=== PATIENT | female | born 1970 | race Caucasian/White ===

== ENCOUNTER 2019-06-30 19:03 | Observation (INO) | payer BC ==
[~2019-06-30 19:03] MED LIST: Iopamidol-370 76% 500 ML 1 ML ONE
[2019-06-30 20:14] LABS: #Basophils 0.1 thou/uL (0.0-0.2); #Eosinphils 0.1 thou/uL (0.0-0.7); #Lymphocytes 1.8 thou/uL (1.20-3.40); #Monocytes 0.5 thou/uL (0.11-0.59); #Neutrophils 2.4 thou/uL (1.40-6.50); %Basophils 1.5 % (0.0-1.0); %Eosinophils 1.1 % (0.0-10.0); %Lymphocytes 36.6 % (21.0-51.0); %Monocytes 10.9 % (0.0-10.0); Hemoglobin 13.3 g/dL (12.0-16.0); Mean Corpuscular HGB CONC 34.4 g/dL (32.0-36.0); Mean Corpuscular Hemoglobin 30.4 pg (27.0-31.0); Mean Corpuscular Volume 88.5 fL (78.0-98.0); Mean Platelet Volume 6.9 fL (7.4-10.4); Platelet Count 315 thou/uL (130-400); RBC Distribution Width 12.3 % (11.5-14.5); Red Blood Cell (RBC) Count 4.37 mill/uL (4.20-5.40); White Blood Cell (WBC) Count 4.9 thou/uL (4.8-10.8)
[2019-06-30 20:35] LABS: ALT (SGPT) 10 U/L (8-55); AST (SGOT) 16 U/L (5-34); Albumin 4.2 g/dL (3.5-5.0); Alkaline Phosphatase 51 U/L (40-110); Anion Gap 11 mmol/L (10-20); BUN (Urea Nitrogen) 12 mg/dL (7.0-18.7); Bilirubin, Total 0.3 mg/dL (0.2-1.2); Calc. Creatinine Clearance 0 mL/min (70-130); Calcium 9.5 mg/dL (7.8-10.44); Carbon Dioxide 28 mmol/L (22-29); Chloride 103 mmol/L (98-107); Estimated GFR-MDRD 83; Globulin 2.8 g/dL (2.4-3.5); Glucose 94 mg/dL (70-105); Sodium 138 mmol/L (136-145)
[2019-06-30 20:39] LABS: Troponin I Less than 0.010 ng/mL (< 0.028)
--- NOTE | 2019-06-30 20:53 | CT ---
CT BRAIN NONCONTRAST: DATE: 06/30/2019 HISTORY: 49-year-old female with altered mental status and right upper extremity paresthesia and hypesthesia. FINDINGS: There is no evidence of acute intra-axial or extra-axial hemorrhage. There is no midline shift or any other mass effect. There is no extra-axial fluid collection. The ventricles are normal in size and configuration. The tympanomastoid cavities, and the upper portions of the paranasal sinuses included in these images, are grossly clear. Calvarium is intact. IMPRESSION: Normal.
--- NOTE | 2019-06-30 21:08 | CT ---
CT ANGIOGRAM THORAX WITH CONTRAST: (CTA pulmonary angiogram) DATE: 06/30/2019 HISTORY: 49-year-old female with chest pain. Right upper extremity paresthesia and hypesthesia TECHNIQUE: IV injection of iodinated contrast. Scan acquisition timing attempted to coincide with iodinated contrast bolus reaching maximal density in pulmonary arteries. 3-D MIP reconstructions. FINDINGS: No pulmonary thromboembolism is identified. No thoracic aortic dissection or rupture. Ectasia of asce nding thoracic aorta caliber up to 3.5 cm. Calcified granuloma in anterior segment of left upper lobe. Otherwise, lungs are clear. No pleural effusion, pneumothorax, mediastinal lymphadenopathy, or hilar lymphadenopathy. No cardiomegaly or pericardial effusion. Large number of focal small hypodensities throughout the liver. The largest one in right lobe of liver is approximately 2.2 cm, a nd is a cyst. The others are too small to characterize. It is assumed that there are also cysts. Right subclavian artery is normal. Brachiocephalic artery is partially obscured by streak artifact fr om adjacent dense contrast bolus in the adjacent left subclavian vein. Trachea and major bronchi are patent and clear. No destructive osseous lesion or rib fracture. IMPRESSION: 1) no pulmonary thromboembolism. 2) large number of small focal low-density hepatic lesions. At least some are cysts. Others are indet erminate. 3) ectasia of ascending thoracic aorta.
[2019-06-30 22:02] LABS: CKMB 1.5 ng/mL (0-6.6)
[2019-06-30] MEDS ORDERED: Aspirin Chewable 81 MG TAB ONE (22:51)
--- NOTE | 2019-07-01 00:05 | PDOC.FPRHP ---
- History of Present Illness Chief Complaint: Tingling & Numbness in face, arm, leg History of Present Illness: 49 yo female presents with complaint of right arm tingling, and feeling of right arm coldness. Additionally she says her right foot feels cold and numb. She says she has been having these sensations on/off since Wednesday 06/27, then today the sensations became constant which prompted her to come to ED. She also started noticing ringing in her right ear this morning. She additionally reports that when she was walking on Sunday she had a brief episode of about 2 minutes during which she felt SOB and had blurry vision. These symptoms resolved after she sat down and rested. Patient states she has been worked up for autoimmune disorder in the past but says her PCP did not find anything abnormal. Denies having had any similar episodes or odd sensations in the past prior to the events described previously. Patient additionally reports that she normally has a BP in 110s/70s. On Sunday she noticed that her heart felt like it was racing, checked her pulse and was 160. She says when later checked her HR it was 48. HR has been up/down past 48 hrs. Additionally her BP has been elevated on/off since then. Patient had surgery for venous insufficiency with Dr Aj Jun 17 and Jun 26. Saw him today in clinic, reports she had a normal EKG and venous US. Dr. Aj was concerned for a PE and ordered CTA however her insurance required a prior auth and she had to wait until it was approved. ED Course: Given [address] head normal. CTA chest showed no signs of PE. - Allergies/Adverse Reactions Allergies Allergy/AdvReac Type Severity Reaction Status Date / Time Penicillins Allergy Severe Anaphylaxis Verified 07/01/19 00:08 - Home Medications Comments: Thyroid [place] 60 mg daily - History PMHx: thyroid nodule removed (non cancerous), Hypothyroid PSHx: tonsillectomy, mandible advancement, bilateral tubal ligation, vein ablation x 2 FHx: mostly unknown, both parents with substance abuse, denies hx of autoimmune disorders, mom with DM Social: denies tobacco or EtOH use - Review of Systems General: denies: fever/chills, weight/appetite/sleep changes, fatigue Eyes: reports: vision changes ENT: denies: nasal congestion Respiratory: reports: shortness of breath. denies: cough, congestion Cardiovascular: denies: chest pain, palpitation, edema Gastrointestinal: denies: nausea, vomiting, diarrhea, abdominal pain Genitourinary: denies: dysuria Skin: denies: rashes, lesions Musculoskeletal: denies: pain, tenderness, stiffness, swelling Neurological: reports: numbness. denies: syncope, weakness Psychological: denies: anxiety, depression - Vital signs BP: 143/82 HR: 90 RR: 17 Tmax: 98.1F Pox: 97% on RA Wt: 63 kg - Physical Exam Constitutional: NAD, awake, alert and oriented, well developed HEENT: normocephalic and atraumatic, PERRLA, EOMI, conjunctiva clear, no scleral icterus, grossly normal vision, grossly normal hearing, MMM, good dention Neck: supple, FROM, trachea midline, no JVD, no thyromegaly Heart: RRR, normal S1/S2, no murmurs/rubs/gallops, pulses present, no edema Lungs: CTAB, no respiratory distress, good air movement, no rales/rhonchi, no wheezing Abdomen: soft, non-tender, bowel sounds present, no masses/distention Musculoskeletal: normal structure, normal tone, ROM grossly normal Neurological: CN II-XII intact -Neurological: Reports sensory deficits ("feels different when compared to other side") when touching top of right foot, portions of right arm consistent with C7 & T1 nerve distribution sites, CN V2 of right face. Skin: no rash/lesions, good turgor Heme/Lymphatic: no unusual bruising or bleeding Psychiatric: normal mood and affect, intact recent and remote memory FMR H&P: Results - Labs Result Diagrams: 06/30/19 20:06 06/30/19 20:06 Lab results: WBC 4.9 thou/uL (4.8-10.8) 06/30/19 20:06 Hgb 13.3 g/dL (12.0-16.0) 06/30/19 20:06 Hct 38.7 % (36.0-47.0) 06/30/19 20:06 MCV 88.5 fL (78.0-98.0) 06/30/19 20:06 Plt Count 315 thou/uL (130-400) 06/30/19 20:06 Neutrophils % 50.0 % (42.0-75.0) 06/30/19 20:06 Sodium 138 mmol/L (136-145) 06/30/19 20:06 Potassium 4.0 mmol/L (3.5-5.1) 06/30/19 20:06 Chloride 103 mmol/L (98-107) 06/30/19 20:06 Carbon Dioxide 28 mmol/L (22-29) 06/30/19 20:06 BUN 12 mg/dL (7.0-18.7) 06/30/19 20:06 Creatinine 0.75 mg/dL (0.6-1.1) 06/30/19 20:06 Glucose 94 mg/dL (70-105) 06/30/19 20:06 Calcium 9.5 mg/dL (7.8-10.44) 06/30/19 20:06 Total Bilirubin 0.3 mg/dL (0.2-1.2) 06/30/19 20:06 AST 16 U/L (5-34) 06/30/19 20:06 ALT 10 U/L (8-55) 06/30/19 20:06 Alkaline Phosphatase 51 U/L (40-110) 06/30/19 20:06 CK-MB (CK-2) 1.5 ng/mL (0-6.6) 06/30/19 21:43 Serum Total Protein 7.0 g/dL (6.0-8.3) 06/30/19 20:06 Albumin 4.2 g/dL (3.5-5.0) 06/30/19 20:06 - EKG Interpretation EKG: NSR - Radiology Interpretation CT scan - chest Status: report reviewed by me (CTA chest: large number of small focal hepatic lesions & cysts, ectasia of ascending thoracic aorta, no sign of PE) CT scan - head Status: report reviewed by me (normal) FMR H&P: A/P - Problem List (1) Paresthesia of right arm and leg Current Visit: Yes Status: Acute Code(s): R20.2 - PARESTHESIA OF SKIN (2) Facial paresthesia Current Visit: Yes Status: Acute Code(s): R20.9 - UNSPECIFIED DISTURBANCES OF SKIN SENSATION (3) Hypothyroid Current Visit: Yes Status: Acute Code(s): E03.9 - HYPOTHYROIDISM, UNSPECIFIED Qualifiers: Hypothyroidism type: unspecified Qualified Code(s): E03.9 - Hypothyroidism , unspecified - Plan Patient is a 49 yo female with complaint of multiple paresthesias is admitted for CVA rule-out: #Paresthesias of right arm & leg, right face -suspect autoimmune component also patient reports has been worked up for this in past -CT head neg -CTA chest shows no signs of PE, has numerous small hepatic lesions/cysts -MRI head in AM -check TSH, RPR -neuro checks q4h #S/P Vein Ablation in [place] -done by Dr. Aj on 06/17/19 and 06/26/19 -imaging neg for DVT, PE #Hypothyroidism -continue home med: Thyroid [place] 60 mg daily -check TSH Diet: Regular VTE: SCDs Code: FULL Dispo: Stable, admitted to observation on stroke unit. Monitor vitals overnight. Plan to check MRI in the AM. Anticipate LOS < 48 hrs. FMR H&P: Upper Level - Pertinent history 49 yo F here with complaint of R arm numbness for the past 2 days. She states that she noticed symptoms off and on since a venous insufficiency procedure 4 days ago and that they have persisted for 2 days. She has associated R foot tingling. She also states that she had about 10 minutes of blurred vision while going for a walk 2 days ago, this has not recurred. In the ER EKG was NSR, labs were WNL, CT brain was normal, CTA chest was negative for PE, but found ectasia of the aorta and hepatic low density lesions. PMHx Hypothyroid Surgical Hx Thyroidectomy Jaw surgery tubal ligation tonsillectomy Vein ablation Social Hx No etoh, tobacco, or recreational drugs FHx Unknown maternal side other than aunts and uncles with CAD No paternal hx - Pertinent findings See architect internship note for full ROS, PE, vitals, and labs ROS General Denies fever/chills CV Complains of periods of heart racing Resp Denies SOB GI Denies n/v/d/c Neuro Complains of R arm numbness, numbness in the top of the R foot, and previous blurred vision Skin denies rash PE General no acute distress HEENT NCAT CV RRR, no murmur Resp CTA b/l Abd No TPP or distension Skin no rash Neuro partial numbness medial R arm. No focal deficits. Normal strength. Normal CN II-XII - Plan Date/Time: 06/30/19 [id number] I, Reji Cardozo DO, have evaluated this patient and agree with findings/plan as outlined by architect internship resident. Pertinent changes/additions are listed here. 1.Paresthesia -Unclear etiology at this time. DDx includes MS, TIA, other neuropathy -Evaluate with MRI, Echo, TSH, RPR -Admit to stroke obs 2.Palpitation -Monitor on tele -Checking echo and TSH as above 3.Hepatic cysts -Incidental finding. May consider outpatient GI work up. 4.Hypothyroid -Home meds Diet Regular PPx SCD Code Full
[2019-07-01] MEDS ORDERED: Ondansetron ODT 4 MG TAB PO PRN (00:58)
[2019-07-01] MEDS ORDERED: Ondansetron PF 4 MG/2 ML Vial IVP PRN (00:58)
[2019-07-01] MEDS ORDERED: Acetaminophen 325 MG TAB PO PRN (00:58)
[2019-07-01] MEDS ORDERED: Calcium Carbonate 500 MG ChewTAB PO PRN (00:58)
[2019-07-01 01:56] VITALS: BMI 24.5
[2019-07-01 02:24] LABS: #Eosinphils 0.1 thou/uL (0.0-0.7); #Lymphocytes 1.7 thou/uL (1.20-3.40); #Monocytes 0.6 thou/uL (0.11-0.59); #Neutrophils 2.9 thou/uL (1.40-6.50); %Basophils 0.6 % (0.0-1.0); %Eosinophils 1.4 % (0.0-10.0); %Lymphocytes 32.7 % (21.0-51.0); %Monocytes 11.7 % (0.0-10.0); %Neutrophils 53.6 % (42.0-75.0); Hemoglobin 12.7 g/dL (12.0-16.0); Mean Corpuscular HGB CONC 34.1 g/dL (32.0-36.0); Mean Corpuscular Hemoglobin 30.3 pg (27.0-31.0); Mean Corpuscular Volume 88.7 fL (78.0-98.0); Mean Platelet Volume 6.9 fL (7.4-10.4); Platelet Count 289 thou/uL (130-400); RBC Distribution Width 12.3 % (11.5-14.5); White Blood Cell (WBC) Count 5.3 thou/uL (4.8-10.8)
[2019-07-01 02:47] LABS: Troponin I Less than 0.010 ng/mL (< 0.028)
[2019-07-01 02:55] LABS: ALT (SGPT) 10 U/L (8-55); AST (SGOT) 14 U/L (5-34); Alkaline Phosphatase 45 U/L (40-110); Anion Gap 13 mmol/L (10-20); BUN (Urea Nitrogen) 14 mg/dL (7.0-18.7); Bilirubin, Total 0.4 mg/dL (0.2-1.2); Calc. Creatinine Clearance 102 mL/min (70-130); Calcium 9.2 mg/dL (7.8-10.44); Carbon Dioxide 25 mmol/L (22-29); Chloride 105 mmol/L (98-107); Estimated GFR-MDRD 87; Globulin 2.7 g/dL (2.4-3.5); Glucose 87 mg/dL (70-105); Potassium 3.7 mmol/L (3.5-5.1); Protein, Total 6.7 g/dL (6.0-8.3); Sodium 139 mmol/L (136-145)
--- NOTE | 2019-07-01 06:04 | PDOC.FM ---
- Objective Vital Signs & Weight: Vital Signs (12 hours) Temp Pulse Resp BP Pulse Ox 07/01/19 04:00 97.6 F 77 16 111/54 L 98 07/01/19 00:40 97.7 F 65 16 113/63 98 Weight Weight 66.769 kg Result Diagrams: 07/01/19 02:11 07/01/19 02:11 Dx/Plan (1) Facial paresthesia Code(s): R20.9 - UNSPECIFIED DISTURBANCES OF SKIN SENSATION Status: Acute (2) Hypothyroid Code(s): E03.9 - HYPOTHYROIDISM, UNSPECIFIED Status: Chronic Qualifiers: Hypothyroidism type: unspecified Qualified Code(s): E03.9 - Hypothyroidism , unspecified (3) Paresthesia of right arm and leg Code(s): R20.2 - PARESTHESIA OF SKIN Status: Acute - Plan Plan: Patient is a 49 yo female with complaint of multiple paresthesias is admitted for CVA rule-out: 1. Paresthesias of right arm & leg, right face -suspect autoimmune component also patient reports has been worked up for this in past -CT head neg -CTA chest shows no signs of PE, has numerous small hepatic lesions/cysts -MRI head ordered -TSH normal, RPR NR -neuro checks q4h 2. S/P Vein Ablation in [facility] -done by Dr. Aj on 06/17/19 and 06/26/19 -imaging neg for DVT, PE 3. Hypothyroidism -continue home med: Thyroid [place] 60 mg daily -TSH within normal range 4. Hepatic cysts - incidentally fount on CT scan. - Will discuss outpt GI f/u Diet: Regular VTE: SCDs Code: FULL Dispo: Stable, admitted to observation on stroke unit. Monitor vitals overnight. Anticipate LOS < 48 hrs.
[2019-07-01 06:19] LABS: Syphilis Antibody Nonreactive (Nonreactive); Syphilis Antibody Index 0.07 S/CO (<1.00 Non-Reactive)
[2019-07-01] MEDS ORDERED: Thyroid 60 MG TAB PO SCH (09:00)
--- NOTE | 2019-07-01 09:11 | MRI ---
Exam: Brain MRI with and without contrast HISTORY: CVA. TIA. Confusion. Right-sided tingling. COMPARISON: None FINDINGS: Gradient echo sequence: No hemorrhage Calvarium: Appropriate T1 marrow signal intensity Midline brain parenchyma: Unremarkable Cerebrum:No parenchymal mass, mass effect or midline shift. Brain volume is age-appropriate. Cortical letser-white matter differentiation is preserved. No significant T2 or FLAIR white matter hyperintensities. Ventricles: No evidence of hydrocephalus. Sinuses and mastoid air cells: Adequate aeration Diffusion: Central arterial flow is maintained. Absent restricted diffusion. Postcontrast images: No pathologic enhancement of the brain parenchyma. IMPRESSION: Unremarkable pre and postcontrast brain MRI. Absent restricted diffusion. No acute infarct. No pathol ogic enhancement of the brain parenchyma. No significant T2 or FLAIR white matter hyperintensities.
--- NOTE | 2019-07-01 11:52 | HP ---
I have discussed the case with Dr. Karli Morfin and agree with her assessment and plan. HISTORY OF PRESENT ILLNESS: Ms. Santillan is a pleasant 49-year-old white female, who presented to our ER with chief complaints of tingling in her right arm and a feeling of right arm coldness that had been ongoing since 06/27. She had also an episode of blurry vision about 3 days ago. She was then brought in for a TIA/CVA rule out. PHYSICAL EXAMINATION: VITAL SIGNS: Her blood pressure is 143/82, heart rate is 90, her respirations are 17. She is afebrile and her room air pulse ox is 97%. GENERAL: She is awake, alert, very pleasant, in no acute distress, and oriented x3. EAR, NOSE AND THROAT: No outward signs of trauma. No neck stiffness. No erythema or exudate. NECK: Supple. CARDIAC: Heart rhythm is regular. No gallop or murmur noted. LUNGS: Clear without rales or wheezes. ABDOMEN: Flat and soft without guarding, rebound, or rigidity. EXTREMITIES: No edema. NEUROLOGIC: No focal deficits are noted. LABORATORY DATA: CBC, white count is 4900, hemoglobin 13.3, hematocrit 38.7 with an MCV of 88.5. Chemistry, sodium 139, potassium 3.7, chloride 105, bicarb 25, BUN is 14, creatinine is 0.72 with a GFR of 87. Her troponins are less than 0.01. Her TSH is 2.5496. ASSESSMENT: Possible transient ischemic attack versus cervical radiculopathy versus other peripheral neuropathy. PLAN: The patient has been admitted and we will perform an MRI and some further blood work. In fact, her MRI was performed later today and it was normal. Her physical exam remains normal. We have recommended that she have as an outpatient some EMG nerve conduction studies and follow up with a neurologist. She is pleasant and agreeable to this plan and will be discharged. Job ID: [id number]
[2019-07-01 12:23] VITALS: BP 117/69; TEMP 97.9
[2019-07-01] MEDS ORDERED: Magnevist 469MG/ML 20 ML VIAL ONE (13:58)
[2019-07-01] MEDS ORDERED: FLU VACC QS2019-20(6MOS UP)/PF 60 MCG/0.5 ML SYRINGE IM ONE (21:00)
--- NOTE | 2019-07-02 13:20 | DIS ---
DATE OF ADMISSION: 07/01/2019 DATE OF DISCHARGE: 07/01/2019 RESIDENT: Jasmyne Mckenzie DO. ADMITTING ATTENDING: Dereck Shaffer MD. DISCHARGE ATTENDING: Dereck Shaffer MD. CONSULTS: None. PROCEDURES: Brain MRI negative. DIAGNOSES: 1. Transient paresthesia. 2. Hypothyroidism. 3. Incidental hepatic cyst finding on CT scan. DISCHARGE MEDICATIONS: 1. [place] Thyroid 60 mg daily. 2. Methylphenidate. Continue home dose. HISTORY OF PRESENT ILLNESS/HOSPITAL COURSE: The patient is a 49-year-old female with a history of hypothyroidism, on [place] Thyroid, coming in for transient paraesthesias of the right upper extremity and right neck, these symptoms wax and wane. Ultimately, she was diagnosed with presumed nerve compression somewhere along the tract. Recommending discharge and follow up outpatient with Neurology for EMG testing. The patient was agreeable to the discharge plan and agreed to follow up with her primary care doctor, Dr. Eli in [place] as well as Neurology as outpatient for further workup. DISPOSITION: The patient was stable upon discharge. DISCHARGE INSTRUCTIONS: 1. Location: To home. 2. Diet: Regular diet. 3. Activity: As tolerated. 4. Follow up with primary care, Dr. Eli, as well as Neurology outpatient. Job ID: [id number]
== END 2019-07-01 13:32 | disposition home or self-care (01) ==
LOC: ERS 19:03 → 2SE 07-01 00:37
PROVIDERS: ADMIT Family Medicine; ATTEND Family Medicine
DX: R20.2 Paresthesia of skin (principal); E03.9 Hypothyroidism, unspecified; K76.89 Other specified diseases of liver; R00.2 Palpitations; Z79.899 Other long term (current) drug therapy; Z88.0 Allergy status to penicillin
CPT/HCPCS: 36415; 70450; 70553; 71275; 80053; 82553; 84443; 84484; 85025; 85652; 86140; 86780; 93005; A9579; G0378; Q9967